=== PATIENT | female | born 1985 | race Caucasian/White ===

== ENCOUNTER 2018-10-28 14:25 | Emergency (ER) | payer SELFPAY ==
[~2018-10-28] VITALS: Ht 162.6 cm; Wt 59.0 kg
[~2018-10-28 14:25] MED LIST: ACET-8386 PO; IBUP-44 PO
[2018-10-28 14:42] VITALS: BP 175/106
--- NOTE | 2018-10-28 14:58 | NUR ---
PT TO ER BED 8
[2018-10-28] MEDS ORDERED: KETOROLAC 30 MG/ML VIAL IM ONE (15:25)
--- NOTE | 2018-10-28 16:02 | NUR ---
c/o intermittent right sided lower back pain x 2 wks; denies injury/trauma. pt c/o burning pain upon voiding and strong urine odor.
[2018-10-28] MEDS ORDERED: PHENAZOPYRIDINE 100 MG TAB PO ONE (16:20)
--- NOTE | 2018-10-28 17:44 | NUR ---
Patient discharged with v/s stable. Written and verbal after care instructions given and explained. Patient alert, oriented and verbalized understanding of instructions. Ambulatory with steady gait. All questions addressed prior to discharge. ID band removed. Patient advised to follow up with PMD. Rx of Keflex, Naprosyn, Phenazopyridine given. Patient educated on indication of medication including possible reaction and side effects. Opportunity to ask questions provided and answered.
[2018-10-28 17:45] VITALS: BP 140/88
[2018-10-31 06:22] LABS: CHLAMYDIA TRACHOMATIS AMP DNA Negative (Negative)
== END 2018-10-28 17:44 | disposition home or self-care (01) ==
LOC: MED 14:25
DX: M54.5 Low back pain (principal); R30.0 Dysuria; Z90.49 Acquired absence of other specified parts of digestive tract; Z79.891 Long term (current) use of opiate analgesic; Z79.1 Long term (current) use of non-steroidal anti-inflammatories (NSAID)
CPT/HCPCS: 36415; 81002; 81025; 96372; 99283; J1885; 87491

== ENCOUNTER 2020-10-12 13:58 | Emergency (ER) | payer SELFPAY ==
[~2020-10-12] VITALS: Ht 160 cm; Wt 59.0 kg
[2020-10-12 13:58] VITALS: BP 138/90
[2020-10-12 14:00] VITALS: BP 138/90
[2020-10-12] MEDS ORDERED: KETOROLAC 30 MG/ML VIAL IVP ONE (15:10)
== END 2020-10-12 16:28 | disposition left against medical advice (07) ==
LOC: MED 13:58
DX: M54.5 Low back pain (principal); M54.2 Cervicalgia; Z79.899 Other long term (current) drug therapy
CPT/HCPCS: 96374; 99283; J1885